=== PATIENT | male | born 1960 | race African-American/Black ===

== ENCOUNTER 2017-12-18 05:58 | Day surgery (SDC) | payer OTHER ==
[~2017-12-18] VITALS: Ht 172.7 cm; Wt 98.9 kg
[~2017-12-18 05:58] MED LIST: (None)3.5 GM OP; AMOXICILLIN500 MG PO; ATIVAN0.5 MG PO; AUGMENTIN875TAB OR; AUGMENTIN875TAB PO; BENTYL10 MG PO; BETIMOL0.5 % IO; CEPHALEXIN500 MG PO; CETIRIZ/PSE1 TAB PO; CIALIS20 MG PO; CLONAZEPAM1 MG PO; CONTOUR NEXT TEST ST VI; DIPHEN/ATROP2.5 MG PO; FENOFIBRATE145 MG PO; FLEXERIL OR; FLONASE NASAL50 MCG; GENTAMICIN15 ML/BTL OP; GLIPIZIDE XL10 MG PO; INVOKANA300 MG PO; KLONOPIN0.5 MG OR; LORTAB 7.5 PO; LOSARTAN POT50 MG PO; MEDDOSEPAK PO; METFORMIN HCL1000 MG PO; METFORMIN500 MG PO; MUCINEX600 MG PO; NAPROSYN500 MG OR; NASONEX50 MCG/AC NAS; NEXIUM40 M1 PO; NORCO1 TAB PO; OXYCOD/APAP1 TA4 PO; PAROXETIN ER12.5 MG PO; PAXIL CR12.5 MG OR; PERCOCET1 TA4 PO; PREDNISONE5 MG OR; PRILOSEC40 MG PO; PROTONIX40 MG PO; TAM75CAP PO; TESTIM1 % TD; ZOFRAN ODT8 MG OR; ZPAK PO; ZYRTEC10 MG OR; [UNRECOGNIZED DRUG - SUPPLY] XX
[2017-12-18 08:35] VITALS: BP 104/69
== END 2017-12-18 08:45 | disposition home or self-care (01) | DRG 392 ==
LOC: ENDO 05:58 → ORM 07:00 → ENDO 08:45 → ORM 13:45
PROVIDERS: ATTEND Internal Medicine Gastroenterology
PROC: 0DBL8ZX Excision of Transverse Colon, Via Natural or Artificial Opening Endoscopic, Diagnostic (ICD-10-PCS; principal; 2017-12-18)
PROC: 0DBE8ZX Excision of Large Intestine, Via Natural or Artificial Opening Endoscopic, Diagnostic (ICD-10-PCS; 2017-12-18)
DX: R19.7 Diarrhea, unspecified (principal); R13.10 Dysphagia, unspecified; K57.30 Diverticulosis of large intestine without perforation or abscess without bleeding; K64.4 Residual hemorrhoidal skin tags; K64.8 Other hemorrhoids; K52.9 Noninfective gastroenteritis and colitis, unspecified; K59.00 Constipation, unspecified; D12.3 Benign neoplasm of transverse colon; R14.0 Abdominal distension (gaseous); R63.4 Abnormal weight loss; K21.9 Gastro-esophageal reflux disease without esophagitis; R11.0 Nausea; E11.9 Type 2 diabetes mellitus without complications; F41.9 Anxiety disorder, unspecified; E78.00 Pure hypercholesterolemia, unspecified; Z86.010 Personal history of colon polyps; Z79.899 Other long term (current) drug therapy

== ENCOUNTER 2018-02-12 06:36 | Day surgery (SDC) | payer OTHER ==
[~2018-02-12] VITALS: Ht 172.7 cm; Wt 97.5 kg
[2018-02-12 09:51] VITALS: BP 118/74
== END 2018-02-12 10:00 | disposition home or self-care (01) | DRG 392 ==
LOC: ENDO 06:36 → ORM 08:45 → ENDO 10:00 → ORM 13:35
PROVIDERS: ATTEND Internal Medicine Gastroenterology
PROC: 0D758ZZ Dilation of Esophagus, Via Natural or Artificial Opening Endoscopic (ICD-10-PCS; principal; 2018-02-12)
PROC: 0DB98ZX Excision of Duodenum, Via Natural or Artificial Opening Endoscopic, Diagnostic (ICD-10-PCS; 2018-02-12)
PROC: 0DB48ZX Excision of Esophagogastric Junction, Via Natural or Artificial Opening Endoscopic, Diagnostic (ICD-10-PCS; 2018-02-12)
DX: K21.9 Gastro-esophageal reflux disease without esophagitis (principal); R13.10 Dysphagia, unspecified; K29.70 Gastritis, unspecified, without bleeding; K31.89 Other diseases of stomach and duodenum; R19.7 Diarrhea, unspecified; R63.4 Abnormal weight loss; K57.30 Diverticulosis of large intestine without perforation or abscess without bleeding; K64.8 Other hemorrhoids; E11.9 Type 2 diabetes mellitus without complications; E78.00 Pure hypercholesterolemia, unspecified; F41.9 Anxiety disorder, unspecified; Z86.010 Personal history of colon polyps

== ENCOUNTER 2018-08-20 19:45 | Emergency (ER) | payer OTHER ==
[~2018-08-20] VITALS: Ht 172.7 cm; Wt 93.2 kg
[2018-08-20] MEDS ORDERED: FLEXERIL5 MG PO (21:18)
[2018-08-20 21:25] VITALS: BP 129/74
== END 2018-08-20 21:25 | disposition home or self-care (01) | DRG 948 ==
LOC: ED 19:45
DX: R52 Pain, unspecified (principal); R50.9 Fever, unspecified; E11.9 Type 2 diabetes mellitus without complications

== ENCOUNTER 2019-10-30 | Emergency (ER) | payer OTHER ==
[~2019-10-30] MED LIST changes: +FLEXERIL5 MG PO
[2019-10-30 10:16] LABS: IMMATURE GRANULOCYTES 0.6 % (0.0-5.0); MEAN CELL VOLUME 89.7 fL CALC (80.0-100.0); MEAN CORPUSCULAR HGB 28.5 pG CALC (26.0-32.0); MEAN CORPUSCULAR HGB CONC 31.8 g/dL CAL (32.0-36.0); NEUT# 5.1 thou/uL (1.82-7.42); RED BLOOD COUNT 6.42 mill/uL (4.70-6.10); RED CELL DISTRI WIDTH 13.1 % (11.5-15.5); URINE BILIRUBIN - DIPSTICK NEGATIVE (NEGATIVE); URINE BLOOD DIPSTICK NEGATIVE (NEGATIVE); URINE COLOR YELLOW; URINE GLUCOSE - DIPSTICK >=1000 mg/dL (NEGATIVE); URINE KETONE 15 mg/dL (NEGATIVE); URINE LEUK ESTERASE NEGATIVE (NEGATIVE); URINE NITRITE - DIPSTICK NEGATIVE (Negative); URINE PROTEIN - DIPSTICK NEGATIVE (NEG-TRACE); URINE SPECIFIC GRAVITY 1.025; URINE UROBILINOGEN - DIPSTICK 0.2 E.U./dL (0.2)
[2019-10-30 10:17] LABS: HEMATOCRIT 57.6 % (39.0-50.0); HEMOGLOBIN 18.3 g/dl (14.0-18.0)
[2019-10-30 10:33] LABS: ALBUMIN 4.3 g/dL (3.2-5.0); ALKALINE PHOSPHATASE 80 u/l (38-126); BUN 18 mg/dL (9-20); BUN/CREATININE RATIO 22 (12-20 (CALC)); CHLORIDE 107 mmol/l (95-108); CREATININE 0.8 mg/dL (0.7-1.3); GFR > 60 ML/MIN (>=60 (CALC)); GFR FOR AFR.AMER. > 60 ML/MIN (>=60 (CALC)); LIPASE 413 u/l (23-300); POTASSIUM 4.9 mmol/l (3.5-5.1); SGOT/AST 27 u/l (17-59); SODIUM 140 mmol/l (137-146); TOTAL PROTEIN 7.5 g/dL (6.3-8.2)
[2019-10-30 11:04] LABS: ANION GAP 22 (6-22 (CALC)); CARBON DIOXIDE 16 mmol/l (22-30)
[2019-10-30] MEDS ORDERED: ONDANSETRON4 MG PO (12:48)
[2019-10-30] MEDS ORDERED: RANITIDINE150 M1 PO (12:48)
[2019-10-31] MEDS ORDERED: GLIPIZIDE10 MG PO (16:39)
[2019-10-31] MEDS ORDERED: SIMVASTATIN10 MG PO (16:39)
[2019-10-31] MEDS ORDERED: TRIGLIDE160 MG PO (16:41)
== END 2019-10-30 13:30 | disposition home or self-care (01) | DRG 392 ==
PROVIDERS: Family Medicine
DX: R10.31 Right lower quadrant pain (principal); R10.32 Left lower quadrant pain; E11.9 Type 2 diabetes mellitus without complications; Z79.84 Long term (current) use of oral hypoglycemic drugs
CPT/HCPCS: Q9967

== ENCOUNTER 2019-10-31 11:20 | Observation (INO) | payer OTHER ==
[~2019-10-31] VITALS: Ht 172.7 cm; Wt 90.0 kg
[~2019-10-31 11:20] MED LIST changes: +ONDANSETRON4 MG PO; +RANITIDINE150 M1 PO
--- NOTE | 2019-10-31 11:50 | NUR ---
PATIENT AMBULATED TO ROOM WITH STEADY GAIT AND PHYSICIAN NOTIFIED OF PATIENT STATUS
--- NOTE | 2019-10-31 11:50 | NUR ---
PT MEDICATED PER MAR FOR ABD PAIN RATING 9 OUT OF 10; MONITORING DEVICES IN PLACE; VSS; WILL CONTINUE TO MONITOR
[2019-10-31 12:18] LABS: HEMATOCRIT 59.5 % (39.0-50.0); HEMOGLOBIN 19.4 g/dl (14.0-18.0); IMMATURE GRANULOCYTES 0.9 % (0.0-5.0); MEAN CORPUSCULAR HGB 28.7 pG CALC (26.0-32.0); MEAN CORPUSCULAR HGB CONC 32.6 g/dL CAL (32.0-36.0); NEUT# 3.92 thou/uL (1.82-7.42); RED BLOOD COUNT 6.76 mill/uL (4.70-6.10); RED CELL DISTRI WIDTH 13.3 % (11.5-15.5)
[2019-10-31 12:37] LABS: ALBUMIN 4.1 g/dL (3.2-5.0); ALKALINE PHOSPHATASE 86 u/l (38-126); ANION GAP 20 (6-22 (CALC)); BILIRUBIN, TOTAL 1.1 mg/dL (0.0-1.4); BUN 20 mg/dL (9-20); BUN/CREATININE RATIO 20 (12-20 (CALC)); CARBON DIOXIDE 17 mmol/l (22-30); CHLORIDE 104 mmol/l (95-108); GFR > 60 ML/MIN (>=60 (CALC)); GFR FOR AFR.AMER. > 60 ML/MIN (>=60 (CALC)); LIPASE 51 u/l (23-300); POTASSIUM 4.6 mmol/l (3.5-5.1); SGOT/AST 29 u/l (17-59); SODIUM 137 mmol/l (137-146); TOTAL PROTEIN 7.1 g/dL (6.3-8.2)
--- NOTE | 2019-10-31 12:40 | NUR ---
PT AMB TO BR WITH STEADY GAIT; STATES PAIN IS STILL 8 OUT OF 10
[2019-10-31 13:18] LABS: URINE BILIRUBIN - DIPSTICK NEGATIVE (NEGATIVE); URINE BLOOD DIPSTICK NEGATIVE (NEGATIVE); URINE COLOR YELLOW; URINE GLUCOSE - DIPSTICK >=1000 mg/dL (NEGATIVE); URINE KETONE TRACE mg/dL (NEGATIVE); URINE LEUK ESTERASE NEGATIVE (NEGATIVE); URINE NITRITE - DIPSTICK NEGATIVE (Negative); URINE PROTEIN - DIPSTICK NEGATIVE (NEG-TRACE); URINE SPECIFIC GRAVITY 1.015; URINE UROBILINOGEN - DIPSTICK 0.2 E.U./dL (0.2)
--- NOTE | 2019-10-31 13:40 | NUR ---
PT RESTING ON STRETCHER; NO S/S OF DISTRESS NOTED; PT ADVISED OF CONTINUED WAIT TIME; VSS; WILL CONTINUE TO MONITOR
--- NOTE | 2019-10-31 14:24 | NUR ---
PT TO RADIOLOGY AT THIS TIME IN STABLE CONDITION
--- NOTE | 2019-10-31 15:20 | NUR ---
ABBEY BUSH AT BEDSIDE TO DISCUSS FINDINGS AND PLAN TO ADMIT; PT VERBALIZES UNDERSTANDING
--- NOTE | 2019-10-31 16:17 | NUR ---
DR AMOS AT BEDSIDE
[2019-10-31] MEDS ORDERED: GLIPIZIDE10 MG PO (16:39)
[2019-10-31] MEDS ORDERED: SIMVASTATIN10 MG PO (16:39)
[2019-10-31] MEDS ORDERED: TRIGLIDE160 MG PO (16:41)
--- NOTE | 2019-10-31 17:00 | NUR ---
PT RESTING ON BED; NO S/S OF DISTRESS NOTED; MONITORING DEVICES IN PLACE; PT ADVISED TO CALL FOR ANY ASSISTANCE NEEDED
--- NOTE | 2019-10-31 18:00 | NUR ---
PO FLUIDS GIVEN
--- NOTE | 2019-10-31 18:40 | NUR ---
Admission Note Report Given to: YANDY BREWSTER Transported by: X Wheelchair Stretcher Transported with: X Nurse Transporter X Patent IV O2 Dry Wall Installer Location: ICU X MS2
--- NOTE | 2019-10-31 19:00 | NUR ---
RECEIVED REPORT FROM NURSE BREWSTER PATIENT WAS TRANSPORTED BY ED NURSE VIA WHEELCHAIR @1840, ORIENTED TO ROOM AND CALL LIGHT SYSTEM.
[2019-10-31 19:25] VITALS: BP 111/71
--- NOTE | 2019-10-31 19:30 | NUR ---
PATIENT ALERT AND ORIENTED, WITH ONGOING IV OF NS @ 125CC/HR INFUSING WELL ON RAC, DENIES ABDOMINAL PAIN AT THIS TIME, REINFORCED ON CLEAR LIQUID DIET AND NPO POST MIDNIGHT, AMBULATORY. CONTINENT OF BOWEL AND BLADDER, LBM 10/30. CALL LIGHT AT REACH.
--- NOTE | 2019-10-31 20:31 | NUR ---
CONSENT FOR EGD SECURED.
--- NOTE | 2019-10-31 21:16 | NUR ---
INFORMED DR. SCHUMACHER OF RES REQUEST FOR SLEEP AID WITH ORDERS MADE.
[2019-11-01] VITALS (7 sets, daily range): BP systolic 102–118; BP diastolic 67–83
--- NOTE | 2019-11-01 | NUR ---
REINFORCED ON NPO STATUS AT THIS TIME.
--- NOTE | 2019-11-01 04:21 | NUR ---
PATIENT RESTING IN BED WITH EYES CLOSED, WITH EVEN UNLABORED BREATHING MAINTAINED ON NPO CALL LIGHT AT REACH.
--- NOTE | 2019-11-01 07:20 | NUR ---
REPORT RECEIVED FROM YANDY LISA. PT RESTING IN BED SEMI FOWLERS; ALERT AND OREINTED. C/O SOME ABDOMINAL TENDERNESS; BS HYPERACTIVE. RESPIRATIONS EVEN AND UNLABORED ON ROOM AIR. PT CONFIRMS HE HAS BEEN NPO SINCE MIDNIGHT AND IS READY FOR SCHEDULED EGD. PLAN OF CARE REVIEWED. PT ENCOURAGED TO VERBALIZE CONCERNS. STATES UNDERSTANDING. SAFETY MEASURES IN PLACE. CALL LIGHT WITHIN REACH.
--- NOTE | 2019-11-01 08:17 | NUR ---
OFF UNIT VIA STRETCHER WITH ER STAFF.
--- NOTE | 2019-11-01 09:54 | NUR ---
PT BACK TO ROOM IN STABLE CONDITION.
--- NOTE | 2019-11-01 10:24 | NUR ---
PT SITTING UP IN BED; ALERT AND ORIENTED. REQUESTING FOOD; SNACK PROVIDED. AM MEDS GIVEN. VSS. PT HAS VERY MILD ABDOMINAL PAIN; DECLINES PAIN MEDICATION.
--- NOTE | 2019-11-01 12:09 | NUR ---
PT REQUESTING MEDICATION FOR DIARRHEA. WILL FIRST COLLECT STOOL SPECIMEN; HAT PLACED IN TOILET AND PT INFORMED.
--- NOTE | 2019-11-01 13:16 | NUR ---
STOOL SAMPLE SENT TO LAB.
--- NOTE | 2019-11-01 17:18 | NUR ---
STOOL NEGATIVE FOR ANY INFECTION. ONE TIME IMMODIUM ORDER OBTAINED PER PT REQUEST FOR FREQUENT DIARRHEA. FAMILY BROUGHT IN PT'S HOME EYE DROPS; WILL SEND TO PHARMACY. FIRST DOSE OF CARAFATE ADMINSITERED; PT EDUCATED ON MEDICATION. NO OTHER REQUESTS OR CONCERNS AT THIS TIME. CALL LIGHT WITH IN REACH.
--- NOTE | 2019-11-01 19:48 | NUR ---
PT. RESTING IN BED ON RIGHT SIDE WATCHING TV. NO RESP. DISTRESS NOTED; ASSESSMENT COMPLETED. UPDATED ON POC; VERBALIZES UNDERSTANDING. IV SITE PATENT AND ORDERED IVF INFUSING WELL. ABD SOFT AND DISTENDED WITH HYPER ACTIVE BS. PT. C/O ABDOMINAL PAIN AND MEDICATED WITH ORDERED PRN PERCOCET, WILL REASSESS. DENIES FURTHER NEEDS. CALL LIGHT IS IN REACH.
--- NOTE | 2019-11-01 21:22 | NUR ---
PT. RESTING IN BED WITH NO DISTRESS NOTED; SCHED MEDS GIVEN ALONG WITH PRN SONATA PER EMAR TO ASSIST WITH SLEEP. DENIES FURTHER NEEDS. CALL LIGHT IS IN REACH.
--- NOTE | 2019-11-01 22:09 | NUR ---
patient was asked he wanted a shower at this time 2149. He refused one but he said he would like one tomorrow morning.
--- NOTE | 2019-11-02 00:22 | NUR ---
PT. RESTING IN BED ON LEFT SIDE WITH EYES CLOSED AND AROUSES EASILY. DENIES NEEDS AND VOICES NO CONCERNS. NEW BAG OF ORDERED IVF HUNG. CALL LIGHT IS IN REACH.
[2019-11-02 03:36] VITALS: BP 119/74
--- NOTE | 2019-11-02 04:00 | NUR ---
RESTING IN BED WITH EYES CLOSED. RESP. EVEN AND UNLABORED. CALL LIGHT IS IN REACH.
--- NOTE | 2019-11-02 05:18 | NUR ---
PT. RESTING IN BED WITH NO DISTRESS NOTED;DENIES NEEDS FOR PAIN MEDS AT THIS TIME. REPORTS 6BM'S THROUGHOUT THE NIGHT.
[2019-11-02 05:25] LABS: MEAN CELL VOLUME 89.2 fL CALC (80.0-100.0); MEAN CORPUSCULAR HGB 28.7 pG CALC (26.0-32.0); MEAN CORPUSCULAR HGB CONC 32.2 g/dL CAL (32.0-36.0); RED BLOOD COUNT 5.08 mill/uL (4.70-6.10)
[2019-11-02 05:30] LABS: HEMATOCRIT 45.3 % (39.0-50.0); HEMOGLOBIN 14.6 g/dl (14.0-18.0)
[2019-11-02 05:48] LABS: ALKALINE PHOSPHATASE 46 u/l (38-126); ANION GAP 11 (6-22 (CALC)); BILIRUBIN, TOTAL 0.8 mg/dL (0.0-1.4); BUN 8 mg/dL (9-20); BUN/CREATININE RATIO 15 (12-20 (CALC)); CARBON DIOXIDE 20 mmol/l (22-30); CHLORIDE 108 mmol/l (95-108); CREATININE 0.6 mg/dL (0.7-1.3); GFR > 60 ML/MIN (>=60 (CALC)); GFR FOR AFR.AMER. > 60 ML/MIN (>=60 (CALC)); SGOT/AST 16 u/l (17-59); SODIUM 135 mmol/l (137-146)
[2019-11-02 05:55] LABS: ALBUMIN 2.6 g/dL (3.2-5.0); TOTAL PROTEIN 4.9 g/dL (6.3-8.2)
--- NOTE | 2019-11-02 07:15 | NUR ---
CHANGE OF SHIFT REPORT RECEIVED FROM YANDY BUSTILLO. PT STATES THAT HE HAD BM X 2 THIS AM. INDUSTRIAL DESIGNER WILL NOTIFY PANFILO FORTUNE
[2019-11-02 08:18] VITALS: BP 115/79
--- NOTE | 2019-11-02 09:50 | NUR ---
PT GIVEN IMODIUM PER ORDER. PROPAGATION WORKER WILL CONTINUE TO MONITOR
--- NOTE | 2019-11-02 12:00 | NUR ---
PT CONTINUES TO HAVE DIARRHEA. PANFILO FORTUNE NOTIFIED. IMODIUM ADMINISTERED PER ORDER
[2019-11-02 16:00] VITALS: BP 113/73
--- NOTE | 2019-11-02 16:29 | NUR ---
PT CONTINUE TO HAVE DIARRHEA. PT ENCOURAGED TO INCREASE FLUID INTAKE. PT CONTINUES ON ANTIBIOTIC AND FLAGYL. BUSINESS CENTER MANAGER WILL CONTINUE TO MONITOR
[2019-11-02 18:40] VITALS: BP 125/80
--- NOTE | 2019-11-02 19:54 | NUR ---
ASSESSMENT COMPLETED. IV SITE PATENT AND ORDERED IVF INFUSING. DENIES PAIN. REPORTS X2 BM'S POST DINNER. UPDATED ON POC. PT. SET UP FOR SHOWER BY CHARGE AIDE. ENCOURAGED TO CALL FOR ANY NEEDS. CALL LIGHT IS IN REACH.
--- NOTE | 2019-11-02 21:45 | NUR ---
TOP OF DRESSING TO PENIS IS CHANGED OUT ATT THIS TIME. DUE TO IT BEING DAMPENENED BY DRAINAGE.
--- NOTE | 2019-11-02 23:46 | NUR ---
SPOKE WITH COLOR WEIGHER KAREN AND NOTIFIED HIM OF GASTRIN LEVEL NOT RECEIVED =. PER HIM HE WILL LOOK INTO IT.
--- NOTE | 2019-11-03 00:12 | NUR ---
PT. RESTING IN BED ON LEFT SIDE WITH NO DISTRESS NOTED. MEDICATED WITH SCHEDULED CIPRO AND PRN IMODIUM. DENIES OTHER NEEDS. CALL LIGHT IS IN REACH.
--- NOTE | 2019-11-03 03:40 | NUR ---
PT. RESTING IN BED WITH NO DISTRESS NOTED; DENIES NEEDS/PAIN. REPORTS LARGE BM X1 LOOSE. WILL CONTINUE TO MONITOR. CALL LIGHT IS IN REACH.
[2019-11-03 03:44] VITALS: BP 118/80
--- NOTE | 2019-11-03 07:20 | NUR ---
CHANGE OF SHIFT REPORT RECEIVED FROM YANDY BUSTILLO. PT COMPLAINT OF LOOSE STOOL X 2 SINCE 6AM. CHRONIC DISEASE EPIDEMIOLOGIST WILL ADMINISTER IMODIUM THIS AM
[2019-11-03 07:38] VITALS: BP 111/69
--- NOTE | 2019-11-03 12:00 | NUR ---
PT STATES THAT HE HE HAD A BOWEL MOVEMENT AT 1030AM, FOR A TOTAL OF 4 BOWEL MOVEMENTS. SUPERINTENDENT COMMISSARY WILL CONTINUE TO MONITOR
--- NOTE | 2019-11-03 15:59 | NUR ---
PT NOTIFIED NOT TO FLUSH STOOL. PT INFORMED THAT HADOOP ARCHITECT HAS TO OBSERVE STOOL FOR PROPER DOCUMENTATION
[2019-11-03 16:10] VITALS: BP 112/77
[2019-11-03 18:50] VITALS: BP 132/81
--- NOTE | 2019-11-03 19:05 | NUR ---
REPORT FROM HELDER KEBEDE. PT NOTED SITTING UP IN BED TALKING ON CELL PHONE. NO APPARENT DISTRESS NOTED. DISCUSSED POC. PT VERBALIZED UNDERSTANDING. NO CURRENT WANTS OR NEEDS AT THIS TIME. WILL CONTINUE TO MONITOR.
--- NOTE | 2019-11-03 20:01 | NUR ---
PT C/O ABD PAIN 6-10, MEDICATED WITH PO PERCOCET AT THIS TIME. PT DENIES ANY NAUSEA. NO APPARENT DISTRESS NOTED. ASSESSMENT COMPLETE. CALL LIGHT WITHIN REACH. WILL CONTINUE TO MONITOR.
--- NOTE | 2019-11-04 01:03 | NUR ---
X4 WATERY GREEN BM NOTED SINCE START OF EVP @1900.
[2019-11-04 03:50] VITALS: BP 110/76
--- NOTE | 2019-11-04 04:29 | NUR ---
PT RESTING IN BED WITH EYES CLOSED. NO APPARENT DISTRESS NOTED. PT DENIES ANY PAIN OR DISCOMFORT AT THIS TIME. CALL LIGHT WITHIN REACH. WILL CONTINUE TO MONITOR.
[2019-11-04 08:00] VITALS: BP 118/79
--- NOTE | 2019-11-04 09:00 | NUR ---
PT AWAKE, ALERT, ORIENTED X 3. LUNGS CLEAR, RA. PT IS AMBULATORY IN ROOM. PT CONTINUES WITH DIARRHEA EVERY FEW HOURS, SAYS THAT ITS COLOR IS CHANGING FROM GREEN TO BROWN. HYPERACTIVE BOWEL SOUNDS. PT EATING WELL WITHOUT NAUSEA OR VOMITING.
[2019-11-04] MEDS ORDERED: CIPROFLOXACN500 MG PO (11:46)
[2019-11-04] MEDS ORDERED: METRONIDAZOL500 MG PO (11:46)
[2019-11-04] MEDS ORDERED: SUCRALFATE1 GM/10 ML PO (11:49)
[2019-11-04] MEDS ORDERED: PERCOCET1 TA4 PO (12:50)
--- NOTE | 2019-11-04 13:00 | NUR ---
PT HAS BEEN SEEN BY DR SCHUMACHER AND DISCHARGED TO HOME. PT VERBALIZED UNDERSTANDING OF DC INSTRUCTIONS, TAKEN TO LOBBY IN WHEELCHAIR. PT DID RECEIVE RXs FOR CARAFATE AND PERCOCET (12), ALONG WITH [facility] PT LEAVES IN STABLE CONDITION.
== END 2019-11-04 13:15 | disposition home or self-care (01) | DRG 392 ==
LOC: ED 11:20 → ED-I 15:45 → ED 16:08 → ED-I 16:09 → MS2 17:27
PROVIDERS: Family Medicine; Nurse Practitioner Family; ADMIT Internal Medicine; ATTEND Internal Medicine
PROC: 0DB78ZX Excision of Stomach, Pylorus, Via Natural or Artificial Opening Endoscopic, Diagnostic (ICD-10-PCS; principal; 2019-11-01)
DX: K29.50 Unspecified chronic gastritis without bleeding (principal); R19.7 Diarrhea, unspecified; K44.9 Diaphragmatic hernia without obstruction or gangrene; E11.9 Type 2 diabetes mellitus without complications; E78.5 Hyperlipidemia, unspecified; Z79.84 Long term (current) use of oral hypoglycemic drugs; Z11.59 Encounter for screening for other viral diseases
CPT/HCPCS: G0378; J1650; Q9967; S0164

== ENCOUNTER 2019-12-10 18:52 | Emergency (ER) | payer OTHER ==
[~2019-12-10 18:52] MED LIST changes: +CIPROFLOXACN500 MG PO; +GLIPIZIDE10 MG PO; +METRONIDAZOL500 MG PO; +SIMVASTATIN10 MG PO; +SUCRALFATE1 GM/10 ML PO; +TRIGLIDE160 MG PO
[2019-12-10] MEDS ORDERED: PROCTOZONE-HC2.5 % RE (19:16)
[2019-12-10] MEDS ORDERED: NITROBID2 % RE (19:16)
[2019-12-10 19:48] VITALS: BP 136/84
== END 2019-12-10 19:47 | disposition home or self-care (01) | DRG 395 ==
LOC: ED 18:52
DX: K60.0 Acute anal fissure (principal); E11.9 Type 2 diabetes mellitus without complications; Z79.84 Long term (current) use of oral hypoglycemic drugs

== ENCOUNTER 2020-07-10 18:43 | Emergency (ER) | payer OTHER ==
[~2020-07-10] VITALS: Ht 172.7 cm; Wt 82.7 kg
[~2020-07-10 18:43] MED LIST changes: +NITROBID2 % RE; +PROCTOZONE-HC2.5 % RE
[2020-07-10] MEDS ORDERED: METRONIDAZOL250 MG PO (20:01)
[2020-07-10] MEDS ORDERED: HYDROCO/APAP1 TA9 PO (20:01)
[2020-07-10] MEDS ORDERED: CIPROFLOXACN500 MG PO (20:01)
[2020-07-10 20:25] VITALS: BP 137/88
[2020-07-11] MEDS ORDERED: METFORMIN HCL1000 MG PO (18:14)
[2020-07-11] MEDS ORDERED: GLIPIZIDE10 MG PO (18:15)
[2020-07-11] MEDS ORDERED: JARDIANCE10 MG PO (18:15)
[2020-07-11] MEDS ORDERED: TRULICITY0.75 MG/0. IM (18:16)
== END 2020-07-10 20:25 | disposition home or self-care (01) | DRG 349 ==
LOC: ED 18:43
PROC: 0D9QXZZ Drainage of Anus, External Approach (ICD-10-PCS; principal; 2020-07-10)
DX: K61.0 Anal abscess (principal); F41.9 Anxiety disorder, unspecified; E11.9 Type 2 diabetes mellitus without complications; K21.9 Gastro-esophageal reflux disease without esophagitis; B96.20 Unspecified Escherichia coli [E. coli] as the cause of diseases classified elsewhere

== ENCOUNTER 2020-07-11 17:50 | Emergency (ER) | payer OTHER ==
[~2020-07-11] VITALS: Ht 172.7 cm; Wt 82.7 kg
[~2020-07-11 17:50] MED LIST changes: +HYDROCO/APAP1 TA9 PO; +METRONIDAZOL250 MG PO
[2020-07-11] MEDS ORDERED: METFORMIN HCL1000 MG PO (18:14)
[2020-07-11] MEDS ORDERED: GLIPIZIDE10 MG PO (18:15)
[2020-07-11] MEDS ORDERED: JARDIANCE10 MG PO (18:15)
[2020-07-11] MEDS ORDERED: TRULICITY0.75 MG/0. IM (18:16)
[2020-07-11 18:19] VITALS: BP 133/63
== END 2020-07-11 18:20 | disposition home or self-care (01) | DRG 951 ==
LOC: ED 17:50
DX: Z48.01 Encounter for change or removal of surgical wound dressing (principal); E11.9 Type 2 diabetes mellitus without complications; F41.9 Anxiety disorder, unspecified

== ENCOUNTER 2020-07-13 07:06 | Emergency (ER) | payer OTHER ==
[~2020-07-13] VITALS: Ht 172.7 cm; Wt 75.0 kg
[~2020-07-13 07:06] MED LIST changes: +JARDIANCE10 MG PO; +TRULICITY0.75 MG/0. IM
[2020-07-13 07:33] VITALS: BP 130/75
== END 2020-07-13 07:42 | disposition home or self-care (01) | DRG 951 ==
LOC: ED 07:06
DX: Z48.01 Encounter for change or removal of surgical wound dressing (principal); E11.9 Type 2 diabetes mellitus without complications; Z79.84 Long term (current) use of oral hypoglycemic drugs

== ENCOUNTER 2021-11-21 11:38 | Emergency (ER) | payer OTHER ==
[~2021-11-21] VITALS: Ht 172.7 cm; Wt 78.6 kg
[2021-11-21 11:46] VITALS: BP 117/78
[2021-11-21 12:00] VITALS: BP 115/87
[2021-11-21 12:34] LABS: HEMATOCRIT 48.1 % (39.0-50.0); HEMOGLOBIN 15.7 g/dl (14.0-18.0); IMMATURE GRANULOCYTES 0.4 % (0.0-5.0); MEAN CELL VOLUME 93.4 fL CALC (80.0-100.0); MEAN CORPUSCULAR HGB 30.5 pG CALC (26.0-32.0); MEAN CORPUSCULAR HGB CONC 32.6 g/dL CAL (32.0-36.0); NEUT# 4.95 thou/uL (1.82-7.42); RED BLOOD COUNT 5.15 mill/uL (4.70-6.10); RED CELL DISTRI WIDTH 12.1 % (11.5-15.5)
[2021-11-21 12:36] LABS: ALKALINE PHOSPHATASE 47 u/l (38-126); ANION GAP 14 (6-22 (CALC)); BILIRUBIN, TOTAL 0.8 mg/dL (0.0-1.4); BUN 18 mg/dL (8-23); BUN/CREATININE RATIO 23 (12-20 (CALC)); CARBON DIOXIDE 22 mmol/l (22-30); CHLORIDE 107 mmol/l (95-108); CREATININE 0.8 mg/dL (0.7-1.3); GFR > 60 ML/MIN (>=60 (CALC)); GFR FOR AFR.AMER. > 60 ML/MIN (>=60 (CALC)); POTASSIUM 4.3 mmol/l (3.5-5.1); SODIUM 138 mmol/l (137-146)
[2021-11-21 12:37] LABS: ALBUMIN 4.4 g/dL (3.2-5.0); SGOT/AST 32 u/l (19-48); TOTAL PROTEIN 7.3 g/dL (6.3-8.2)
[2021-11-21 12:42] LABS: URINE BILIRUBIN - DIPSTICK NEGATIVE (NEGATIVE); URINE BLOOD DIPSTICK NEGATIVE (NEGATIVE); URINE CLARITY CLEAR; URINE COLOR YELLOW; URINE GLUCOSE - DIPSTICK >=1000 mg/dL (NEGATIVE); URINE KETONE NEGATIVE (NEGATIVE); URINE LEUK ESTERASE NEGATIVE (Negative); URINE NITRITE - DIPSTICK NEGATIVE (Negative); URINE PROTEIN - DIPSTICK NEGATIVE (NEG-TRACE); URINE SPECIFIC GRAVITY <=1.005
[2021-11-21 12:49] LABS: ACT PARTIAL THROMBO TIME 22.4 SECONDS (20.0-32.5); PROTHROMBIN TIME 10.1 SECONDS (9.0-12.5)
[2021-11-21] MEDS ORDERED: CYCLOBENZAPRINE10 MG PO (14:54)
== END 2021-11-21 15:30 | disposition home or self-care (01) | DRG 313 ==
LOC: ED 11:38
PROVIDERS: Internal Medicine
DX: R07.9 Chest pain, unspecified (principal); M54.9 Dorsalgia, unspecified; R25.2 Cramp and spasm; E11.65 Type 2 diabetes mellitus with hyperglycemia; K21.9 Gastro-esophageal reflux disease without esophagitis; E78.00 Pure hypercholesterolemia, unspecified; F41.9 Anxiety disorder, unspecified; V49.40XA Driver injured in collision with unspecified motor vehicles in traffic accident, initial encounter; Z79.84 Long term (current) use of oral hypoglycemic drugs
CPT/HCPCS: J2060

== ENCOUNTER 2024-06-11 16:32 | Emergency (ER) | payer OTHER ==
[~2024-06-11] VITALS: Ht 172.7 cm; Wt 74.9 kg
[2024-06-11] VITALS (20 sets, daily range): BP systolic 94–137; BP diastolic 60–92
[~2024-06-11 16:32] MED LIST changes: +CYCLOBENZAPRINE10 MG PO
[2024-06-11 17:25] LABS: BASO% 0.3 % (0-3); EOS% 3.3 % (0-8); HEMATOCRIT 46.2 % (39.0-50.0); HEMOGLOBIN 14.9 g/dl (14.0-18.0); IMMATURE GRANULOCYTES 0.5 % (0.0-5.0); MEAN CELL VOLUME 97.3 fL CALC (80.0-100.0); MEAN CORPUSCULAR HGB 31.4 pG CALC (26.0-32.0); MEAN CORPUSCULAR HGB CONC 32.3 g/dL CAL (32.0-36.0); NEUT# 3.65 thou/uL (1.82-7.42); NEUT% 63.9 % (42-76); RED BLOOD COUNT 4.75 mill/uL (4.70-6.10); RED CELL DISTRI WIDTH 12.3 % (11.5-15.5)
[2024-06-11 17:36] LABS: ALBUMIN 4.4 g/dL (3.2-5.0); ALKALINE PHOSPHATASE 54 u/l (38-126); ANION GAP 17 (6-22 (CALC)); BILIRUBIN, TOTAL 0.5 mg/dL (0.2-1.3); CARBON DIOXIDE 24 mmol/l (22-30); CHLORIDE 99 mmol/l (95-108); POTASSIUM 4.1 mmol/l (3.5-5.1); SGOT/AST 25 u/l (19-48); SODIUM 136 mmol/l (137-146); TOTAL PROTEIN 6.9 g/dL (6.3-8.2)
[2024-06-11 17:40] LABS: BUN 22 mg/dL (8-23); BUN/CREATININE RATIO 25 (12-20 (CALC)); CREATININE 0.9 mg/dL (0.7-1.3); ESTIMATED GFR 95 ML/MIN (>=90 (CALC))
[2024-06-11] MEDS ORDERED: SODIUM CHLORIDE 0.9% 1,000 ML IV ONE ×2 (19:50)
[2024-06-11] MEDS ORDERED: INSULIN REGULAR (HUMAN) 100 UNIT/ML INJ SC ONE (19:50)
[2024-06-11] MEDS ORDERED: INSULIN REGULAR (HUMAN) 100 UNIT/ML INJ IV ONE (19:50)
== END 2024-06-11 22:21 | disposition home or self-care (01) | DRG 312 ==
LOC: ED 16:32
PROVIDERS: Family Medicine
DX: R55 Syncope and collapse (principal); E11.65 Type 2 diabetes mellitus with hyperglycemia; I10 Essential (primary) hypertension; K21.9 Gastro-esophageal reflux disease without esophagitis; E78.00 Pure hypercholesterolemia, unspecified; Z79.84 Long term (current) use of oral hypoglycemic drugs; Z79.85 Long-term (current) use of injectable non-insulin antidiabetic drugs

== ENCOUNTER 2024-06-15 11:27 | Emergency (ER) | payer OTHER ==
[2024-06-15] VITALS (7 sets, daily range): BP systolic 108–137; BP diastolic 76–84
[~2024-06-15] VITALS: Ht 172.7 cm; Wt 72.7 kg
[2024-06-15 11:57] LABS: BASO% 0.5 % (0-3); EOS% 4.4 % (0-8); HEMATOCRIT 48.3 % (39.0-50.0); HEMOGLOBIN 15.2 g/dl (14.0-18.0); IMMATURE GRANULOCYTES 0.3 % (0.0-5.0); LYMPH% 22.3 % (15-41); MEAN CELL VOLUME 97.2 fL CALC (80.0-100.0); MEAN CORPUSCULAR HGB 30.6 pG CALC (26.0-32.0); MEAN CORPUSCULAR HGB CONC 31.5 g/dL CAL (32.0-36.0); MONO% 9.8 % (2-13); NEUT# 3.6 thou/uL (1.82-7.42); NEUT% 62.7 % (42-76); RED BLOOD COUNT 4.97 mill/uL (4.70-6.10); RED CELL DISTRI WIDTH 12.5 % (11.5-15.5)
[2024-06-15 12:14] LABS: ALBUMIN 4.4 g/dL (3.2-5.0); ALKALINE PHOSPHATASE 43 u/l (38-126); ANION GAP 16 (6-22 (CALC)); BUN 22 mg/dL (8-23); BUN/CREATININE RATIO 23 (12-20 (CALC)); CARBON DIOXIDE 26 mmol/l (22-30); CHLORIDE 102 mmol/l (95-108); ESTIMATED GFR 84 ML/MIN (>=90 (CALC)); POTASSIUM 4.5 mmol/l (3.5-5.1); SGOT/AST 26 u/l (19-48); SODIUM 140 mmol/l (137-146); TOTAL PROTEIN 6.9 g/dL (6.3-8.2)
[2024-06-15 12:22] LABS: BILIRUBIN, TOTAL 0.8 mg/dL (0.2-1.3)
[2024-06-15 12:59] LABS: URINE BILIRUBIN - DIPSTICK Negative (NEGATIVE); URINE BLOOD DIPSTICK Negative (NEGATIVE); URINE GLUCOSE - DIPSTICK >=1000 mg/dL (NEGATIVE); URINE KETONE Trace mg/dL (NEGATIVE); URINE LEUK ESTERASE Negative (NEGATIVE); URINE NITRITE - DIPSTICK Negative (Negative); URINE PROTEIN - DIPSTICK Negative (NEG-TRACE); URINE SPECIFIC GRAVITY 1.015; URINE UROBILINOGEN - DIPSTICK 0.2 E.U./dL (0.2)
[2024-06-15 13:07] LABS: URINE COLOR Yellow
[2024-06-15] MEDS ORDERED: DRAMAMINE25 M1 PO (14:04)
[2024-06-15] MEDS ORDERED: KETOROLAC TROMETHAMINE 15 MG/ML SDV IV ONE (14:05)
[2024-06-15] MEDS ORDERED: DEBROX6.5 % AU (14:09)
== END 2024-06-15 14:57 | disposition home or self-care (01) | DRG 149 ==
LOC: ED 11:27
PROVIDERS: Family Medicine
DX: R42 Dizziness and giddiness (principal); E11.9 Type 2 diabetes mellitus without complications; E78.00 Pure hypercholesterolemia, unspecified; K21.9 Gastro-esophageal reflux disease without esophagitis; F41.9 Anxiety disorder, unspecified; Z79.84 Long term (current) use of oral hypoglycemic drugs

== ENCOUNTER 2024-09-09 19:10 | Emergency (ER) | payer OTHER ==
[~2024-09-09] VITALS: Ht 172.7 cm; Wt 72.0 kg
[~2024-09-09 19:10] MED LIST changes: +DEBROX6.5 % AU; +DRAMAMINE25 M1 PO
[2024-09-09 19:18] VITALS: BP 115/78
[2024-09-09 19:32] VITALS: BP 116/76
[2024-09-09 19:57] LABS: BASO% 0.5 % (0-3); EOS% 4.9 % (0-8); HEMATOCRIT 41.3 % (39.0-50.0); HEMOGLOBIN 13.4 g/dl (14.0-18.0); IMMATURE GRANULOCYTES 0.5 % (0.0-5.0); LYMPH% 23.4 % (15-41); MEAN CELL VOLUME 93.7 fL CALC (80.0-100.0); MEAN CORPUSCULAR HGB 30.4 pG CALC (26.0-32.0); MEAN CORPUSCULAR HGB CONC 32.4 g/dL CAL (32.0-36.0); NEUT# 2.49 thou/uL (1.82-7.42); NEUT% 57.7 % (42-76); RED BLOOD COUNT 4.41 mill/uL (4.70-6.10); RED CELL DISTRI WIDTH 12.1 % (11.5-15.5)
[2024-09-09 20:10] LABS: ALBUMIN 3.7 g/dL (3.2-5.0); ALKALINE PHOSPHATASE 57 u/l (38-126); ANION GAP 10 (6-22 (CALC)); BILIRUBIN, TOTAL 0.6 mg/dL (0.2-1.3); BUN 15 mg/dL (8-23); BUN/CREATININE RATIO 22 (12-20 (CALC)); CARBON DIOXIDE 26 mmol/l (22-30); CHLORIDE 102 mmol/l (95-108); CREATININE 0.7 mg/dL (0.7-1.3); ESTIMATED GFR 102 ML/MIN (>=90 (CALC)); SGOT/AST 26 u/l (19-48); TOTAL PROTEIN 6.2 g/dL (6.3-8.2)
[2024-09-09 20:14] LABS: SODIUM 134 mmol/l (137-146)
[2024-09-09] MEDS ORDERED: NAPROXEN 250 MG/TAB PO ONE (20:25)
[2024-09-09] MEDS ORDERED: METHOCARBAMOL 500 MG/TAB PO ONE (20:25)
[2024-09-09] MEDS ORDERED: INSULIN REGULAR (HUMAN) 100 UNIT/ML INJ SC ONE (20:25)
[2024-09-09] MEDS ORDERED: NAPROXEN500 MG PO (20:31)
[2024-09-09] MEDS ORDERED: METHOCARBAMOL500 MG PO (20:31)
[2024-09-09 22:05] VITALS: BP 116/76
== END 2024-09-09 22:18 | disposition home or self-care (01) | DRG 552 ==
LOC: ED 19:10
PROVIDERS: Nurse Practitioner
DX: M54.50 Low back pain, unspecified (principal); M54.6 Pain in thoracic spine; M54.2 Cervicalgia; E11.65 Type 2 diabetes mellitus with hyperglycemia; K21.9 Gastro-esophageal reflux disease without esophagitis; F41.9 Anxiety disorder, unspecified; E78.00 Pure hypercholesterolemia, unspecified; Z79.84 Long term (current) use of oral hypoglycemic drugs